=== PATIENT | male | born 1960 | race Caucasian/White ===

== ENCOUNTER 2017-06-29 12:16 | Emergency (ER) | payer MEDICARE, OTHER ==
[2017-06-29] MEDS: LEVALBUTEROL (NEB) 1.25 MG/0.5 ML AMP HHN (16:11)
[2017-06-29] MEDS: METHYLPREDNISOLONE 125 MG INJ IM (16:46)
[2017-06-29] MEDS: OSELTAMIVIR 75 MG CAP PO (18:04)
[2017-06-29] MEDS ORDERED: IBUPROFEN 800 MG TAB (18:05)
== END 2017-06-29 18:19 | disposition home or self-care (01) ==
LOC: FTE 12:16
DX: J10.1 Influenza due to other identified influenza virus with other respiratory manifestations (principal); R00.2 Palpitations
CPT/HCPCS: 71046; 87400; 93005; 94664; 96372; 99285-25

== ENCOUNTER 2018-02-08 22:05 | Observation (INO) | payer MEDICARE, OTHER ==
[2018-02-09 02:05] LABS: ADD MAN DIFF? NO
[2018-02-09 02:06] LABS: BASOPHILS % 0.3 % (0.0-2.0); EOSINOPHILS # 0.2 10^3/ul (0.0-0.5); EOSINOPHILS % 2.9 % (0.0-7.0); HEMATOCRIT 45.3 % (42.0-52.0); HEMOGLOBIN 15.2 g/dl (14.0-18.0); LYMPHOCYTES # 2.5 10^3/ul (0.8-2.9); LYMPHOCYTES % 33.1 % (15.0-51.0); MEAN CORPUSCULAR HEMOGLOBIN 30.2 pg (29.0-33.0); MEAN CORPUSCULAR HGB CONC 33.6 g/dl (32.0-37.0); MEAN CORPUSCULAR VOLUME 89.9 fl (82.0-101.0); MEAN PLATELET VOLUME 10.6 fl (7.4-10.4); MONOCYTE # 0.7 10^3/ul (0.3-0.9); MONOCYTES % 9.1 % (0.0-11.0); NEUTROPHIL # 4.1 10^3/ul (1.6-7.5); NEUTROPHILS % 54.5 % (39.0-77.0); PLATELET COUNT 218 10^3/UL (140-415); RED BLOOD COUNT 5.04 10^6/ul (4.70-6.10); RED CELL DISTRIBUTION WIDTH 12.6 % (11.5-14.5)
[2018-02-09 02:06] LABS: WHITE BLOOD COUNT 7.5 10^3/ul (4.8-10.8)
[2018-02-09 02:28] LABS: ALANINE AMINOTRANSFERASE 27 IU/L (13-69); ALBUMIN 4.2 g/dl (3.3-4.9); ALBUMIN/GLOBULIN RATIO 1.16; ALKALINE PHOSPHATASE 82 IU/L (42-121); ANION GAP 11 (8-16); ASPARTATE AMINO TRANSFERASE 35 IU/L (15-46); BILIRUBIN,INDIRECT 1.8 mg/dl (0-1.1); BILIRUBIN,TOTAL 1.8 mg/dl (0.2-1.3); BLOOD UREA NITROGEN 16 mg/dl (7-20); CALCIUM 9.4 mg/dl (8.4-10.2); CARBON DIOXIDE 30 mmol/L (21-31); CHLORIDE 100 mmol/L (97-110); CREATININE 1.23 mg/dl (0.61-1.24); GLUCOSE 90 mg/dl (70-220); SODIUM 137 mmol/L (135-144); TOTAL PROTEIN 7.8 g/dl (6.1-8.1)
[2018-02-09 02:39] LABS: B-TYPE NATRIURETIC PEPTIDE 78 PG/ML (0-125); TROPONIN-I < 0.010 ng/ml (0.000-0.120)
[2018-02-09] MEDS: ONDANSETRON 4 MG INJ IV (07:56)
[2018-02-09] MEDS: ASPIRIN 81 MG TAB PO (07:56)
[2018-02-09] MEDS: SOD CHLORIDE 0.9% 500 ML IV (07:57)
[2018-02-09] MEDS: morphine 4 MG/ML VIAL IV (07:58)
[2018-02-09 08:29] LABS: CREATINE KINASE 429 IU/L (23-200)
[2018-02-09 08:39] LABS: CK INDEX 0.5; CK-MB 2.13 ng/ml (0.0-2.4); TROPONIN-I < 0.010 ng/ml (0.000-0.120)
[2018-02-09] MEDS: LISINOPRIL 5 MG TAB PO (14:30)
[2018-02-09] MEDS: NIACIN 500 MG TAB PO (15:46)
[2018-02-09] MEDS: FLUTICASONE/VILANTEROL 100-25 INH (15:46)
[2018-02-09] MEDS: PANTOPRAZOLE 40 MG INJ IV (15:46)
[2018-02-09 15:47] LABS: CREATINE KINASE 229 IU/L (23-200)
[2018-02-09 16:00] LABS: CK INDEX 0.3; CK-MB 0.72 ng/ml (0.0-2.4); TROPONIN-I < 0.010 ng/ml (0.000-0.120)
[2018-02-10 05:25] LABS: ADD MAN DIFF? NO
[2018-02-10 05:35] LABS: WHITE BLOOD COUNT 6.6 10^3/ul (4.8-10.8)
[2018-02-10 05:35] LABS: BASOPHILS % 0.3 % (0.0-2.0); EOSINOPHILS # 0.3 10^3/ul (0.0-0.5); HEMATOCRIT 46.9 % (42.0-52.0); HEMOGLOBIN 15.5 g/dl (14.0-18.0); LYMPHOCYTES # 2.2 10^3/ul (0.8-2.9); LYMPHOCYTES % 32.8 % (15.0-51.0); MEAN CORPUSCULAR VOLUME 90.7 fl (82.0-101.0); MEAN PLATELET VOLUME 11.3 fl (7.4-10.4); MONOCYTE # 0.5 10^3/ul (0.3-0.9); MONOCYTES % 6.8 % (0.0-11.0); NEUTROPHIL # 3.6 10^3/ul (1.6-7.5); NEUTROPHILS % 54.9 % (39.0-77.0); PLATELET COUNT 211 10^3/UL (140-415); RED BLOOD COUNT 5.17 10^6/ul (4.70-6.10); RED CELL DISTRIBUTION WIDTH 12.5 % (11.5-14.5)
[2018-02-10] MEDS: PANTOPRAZOLE 40 MG INJ IV (05:39)
[2018-02-10 05:49] LABS: ANION GAP 11 (8-16); BLOOD UREA NITROGEN 16 mg/dl (7-20); CALCIUM 9.1 mg/dl (8.4-10.2); CARBON DIOXIDE 30 mmol/L (21-31); CHLORIDE 104 mmol/L (97-110); CREATININE 1.21 mg/dl (0.61-1.24); GLUCOSE 94 mg/dl (70-220); POTASSIUM 4.2 mmol/L (3.5-5.1); SODIUM 141 mmol/L (135-144)
[2018-02-10 05:57] LABS: CREATINE KINASE 199 IU/L (23-200)
[2018-02-10 06:02] LABS: CK INDEX 0.7; CK-MB 1.32 ng/ml (0.0-2.4); TROPONIN-I < 0.010 ng/ml (0.000-0.120)
[2018-02-10] MEDS: NIACIN 500 MG TAB PO (09:21)
[2018-02-10] MEDS: FLUTICASONE/VILANTEROL 100-25 INH (09:22)
[2018-02-10] MEDS: ASPIRIN (EC) 81 MG TAB PO (14:35)
== END 2018-02-10 15:47 | disposition home or self-care (01) ==
LOC: E/R 22:05 → MS3 02-09 06:49
DX: E86.0 Dehydration (principal); R07.89 Other chest pain; R00.1 Bradycardia, unspecified; K21.9 Gastro-esophageal reflux disease without esophagitis
CPT/HCPCS: 36415; 71045; 80048; 80053; 82550; 82553; 83735; 83880; 84484; 85025; 93005; 93306; 99285-25

== ENCOUNTER 2018-05-08 18:58 | Emergency (ER) | payer MEDICARE, OTHER ==
[2018-05-08] MEDS: ONDANSETRON (ODT) 4 MG TAB ODT (20:02)
== END 2018-05-08 21:14 | disposition home or self-care (01) ==
LOC: FTE 18:58
DX: R11.0 Nausea (principal); R68.83 Chills (without fever); J44.9 Chronic obstructive pulmonary disease, unspecified; Z79.82 Long term (current) use of aspirin
CPT/HCPCS: 71045; 87400; 99284-25

== ENCOUNTER 2018-08-17 19:36 | Emergency (ER) | payer MEDICARE, OTHER ==
[2018-08-18 01:15] LABS: ADD MAN DIFF? NO
[2018-08-18 01:17] LABS: BASOPHILS % 0.4 % (0.0-2.0); EOSINOPHILS # 0.2 10^3/ul (0.0-0.5); EOSINOPHILS % 3.6 % (0.0-7.0); HEMATOCRIT 43.4 % (42.0-52.0); HEMOGLOBIN 14.9 g/dl (14.0-18.0); LYMPHOCYTES # 2.2 10^3/ul (0.8-2.9); LYMPHOCYTES % 39.9 % (15.0-51.0); MEAN CORPUSCULAR HEMOGLOBIN 31.2 pg (29.0-33.0); MEAN CORPUSCULAR HGB CONC 34.3 g/dl (32.0-37.0); MEAN CORPUSCULAR VOLUME 90.8 fl (82.0-101.0); MEAN PLATELET VOLUME 10.3 fl (7.4-10.4); MONOCYTE # 0.6 10^3/ul (0.3-0.9); MONOCYTES % 11.2 % (0.0-11.0); NEUTROPHIL # 2.5 10^3/ul (1.6-7.5); NEUTROPHILS % 44.7 % (39.0-77.0); PLATELET COUNT 211 10^3/UL (140-415); RED BLOOD COUNT 4.78 10^6/ul (4.70-6.10); RED CELL DISTRIBUTION WIDTH 12.3 % (11.5-14.5)
[2018-08-18 01:17] LABS: WHITE BLOOD COUNT 5.6 10^3/ul (4.8-10.8)
[2018-08-18 01:34] LABS: ALANINE AMINOTRANSFERASE 19 IU/L (13-69); ALBUMIN 4.5 g/dl (3.3-4.9); ALBUMIN/GLOBULIN RATIO 1.28; ALKALINE PHOSPHATASE 106 IU/L (42-121); ANION GAP 10 (5-13); ASPARTATE AMINO TRANSFERASE 31 IU/L (15-46); BILIRUBIN,INDIRECT 1.2 mg/dl (0-1.1); BILIRUBIN,TOTAL 1.2 mg/dl (0.2-1.3); BLOOD UREA NITROGEN 13 mg/dl (7-20); CALCIUM 9.7 mg/dl (8.4-10.2); CARBON DIOXIDE 29 mmol/L (21-31); CHLORIDE 100 mmol/L (97-110); CREATININE 1.21 mg/dl (0.61-1.24); Estimated GFR > 60 mL/min (>60); GLUCOSE 104 mg/dl (70-220); SODIUM 139 mmol/L (135-144)
[2018-08-18 03:54] LABS: MAGNESIUM 2.3 mg/dl (1.7-2.5)
== END 2018-08-18 04:20 | disposition home or self-care (01) ==
LOC: FTE 08-18 04:20
DX: I49.3 Ventricular premature depolarization (principal); J44.9 Chronic obstructive pulmonary disease, unspecified; Z79.82 Long term (current) use of aspirin
CPT/HCPCS: 36415; 80053; 83735; 84443; 85025; 99284-25

== ENCOUNTER 2018-11-01 02:04 | Emergency (ER) | payer MEDICARE | END 2018-11-01 05:02 | disposition home or self-care (01) | LOC: FTE 02:04 | DX: Z00.00 Encounter for general adult medical examination without abnormal findings (principal); J44.9 Chronic obstructive pulmonary disease, unspecified; Z71.1 Person with feared health complaint in whom no diagnosis is made; Z79.82 Long term (current) use of aspirin | CPT/HCPCS: 99282 ==

== ENCOUNTER 2018-12-03 21:18 | Emergency (ER) | payer MEDICARE, OTHER ==
[2018-12-03 22:21] LABS: ADD MAN DIFF? NO
[2018-12-03 22:22] LABS: WHITE BLOOD COUNT 8.4 10^3/ul (4.8-10.8)
[2018-12-03 22:22] LABS: BASOPHILS % 0.2 % (0.0-2.0); EOSINOPHILS # 0.1 10^3/ul (0.0-0.5); EOSINOPHILS % 1.7 % (0.0-7.0); HEMATOCRIT 41.6 % (42.0-52.0); HEMOGLOBIN 14.4 g/dl (14.0-18.0); MEAN CORPUSCULAR HEMOGLOBIN 30.8 pg (29.0-33.0); MEAN CORPUSCULAR HGB CONC 34.6 g/dl (32.0-37.0); MEAN CORPUSCULAR VOLUME 89.1 fl (82.0-101.0); MEAN PLATELET VOLUME 10.2 fl (7.4-10.4); MONOCYTE # 0.6 10^3/ul (0.3-0.9); NEUTROPHIL # 4.6 10^3/ul (1.6-7.5); NEUTROPHILS % 54.9 % (39.0-77.0); PLATELET COUNT 217 10^3/UL (140-415); RED BLOOD COUNT 4.67 10^6/ul (4.70-6.10); RED CELL DISTRIBUTION WIDTH 12.7 % (11.5-14.5)
[2018-12-03] MEDS: SOD CHLORIDE 0.9% 1,000 ML IV (22:29)
[2018-12-03] MEDS: DICYCLOMINE 10 MG CAP PO (22:29)
[2018-12-03 22:43] LABS: ALANINE AMINOTRANSFERASE 30 IU/L (13-69); ALBUMIN 4.4 g/dl (3.3-4.9); ALBUMIN/GLOBULIN RATIO 1.29; ALKALINE PHOSPHATASE 93 IU/L (42-121); ANION GAP 11 (5-13); ASPARTATE AMINO TRANSFERASE 41 IU/L (15-46); BILIRUBIN,INDIRECT 1.3 mg/dl (0-1.1); BILIRUBIN,TOTAL 1.3 mg/dl (0.2-1.3); BLOOD UREA NITROGEN 18 mg/dl (7-20); CALCIUM 8.7 mg/dl (8.4-10.2); CARBON DIOXIDE 24 mmol/L (21-31); CHLORIDE 99 mmol/L (97-110); CREATININE 1.22 mg/dl (0.61-1.24); Estimated GFR > 60 mL/min (>60); GLUCOSE 101 mg/dl (70-220); LIPASE 469 U/L (23-300); POTASSIUM 3.3 mmol/L (3.5-5.1); SODIUM 134 mmol/L (135-144); TOTAL PROTEIN 7.8 g/dl (6.1-8.1)
[2018-12-03 23:05] LABS: TROPONIN-I < 0.012 ng/ml (0.000-0.120)
[2018-12-04 03:11] LABS: TROPONIN-I < 0.012 ng/ml (0.000-0.120)
== END 2018-12-04 03:38 | disposition home or self-care (01) ==
LOC: E/R 12-04 03:38
DX: R10.13 Epigastric pain (principal); J44.9 Chronic obstructive pulmonary disease, unspecified; R07.9 Chest pain, unspecified; Z79.82 Long term (current) use of aspirin
CPT/HCPCS: 36415; 71045; 80053; 83690; 84484; 85025; 93005; 99285-25

== ENCOUNTER 2019-03-17 03:10 | Emergency (ER) | payer MEDICARE, OTHER ==
[2019-03-17] MEDS: IBUPROFEN 600 MG TAB PO (04:11)
== END 2019-03-17 05:22 | disposition home or self-care (01) ==
LOC: FTE 03:10
DX: S82.61XA Displaced fracture of lateral malleolus of right fibula, initial encounter for closed fracture (principal); J44.9 Chronic obstructive pulmonary disease, unspecified; X50.1XXA Overexertion from prolonged static or awkward postures, initial encounter; Y92.9 Unspecified place or not applicable; Z79.82 Long term (current) use of aspirin
CPT/HCPCS: 29515; 73610-RT; 99283-25